=== PATIENT | male | born 1995 | race Caucasian/White ===

== ENCOUNTER 2016-08-31 14:14 | Emergency (ER) | payer OTHER ==
--- NOTE | 2016-08-31 16:45 | RAD ---
THORACIC DORSAL SPINE 3 VIEW COMPARISON: None. HISTORY: The patient was pulling plastic from underneath a house and felt a "pop, followed by sharp pain", between the shoulder blades. Work related injury. Initial encounter. FINDINGS: Views: Thoracic spine AP, lateral, swimmer's lateral. Vertebral alignment: Mild left convexity of the thoracic spine. Normal kyphosis. Vertebral bodies: Normal. Disc heights: Normal. Pedicles and posterior arches: Normal Paraspinal soft tissues: Normal. Posterior ribs: Normal. IMPRESSION: Mild left convexity of the thoracic spine. No fracture.
== END 2016-08-31 17:38 | disposition home or self-care (01) ==
LOC: ED 14:14
DX: S29.012A Strain of muscle and tendon of back wall of thorax, initial encounter (principal); X50.0XXA Overexertion from strenuous movement or load, initial encounter; Y93.H3 Activity, building and construction; Y92.69 Other specified industrial and construction area as the place of occurrence of the external cause; Y99.0 Civilian activity done for income or pay